=== PATIENT | female | born 1995 | race Caucasian/White ===

== ENCOUNTER 2018-02-18 23:18 | Emergency (ER) | payer MEDICAID, OTHER ==
[2018-02-19] MEDS: LIDOCAINE/MYLANTA 40 ML BTL PO (01:13)
== END 2018-02-19 01:27 | disposition home or self-care (01) ==
LOC: FTE 23:18
DX: G21.9 Secondary parkinsonism, unspecified (principal)
CPT/HCPCS: 99283; Z7610